=== PATIENT | male | born 1985 | race Caucasian/White ===

== ENCOUNTER 2017-03-13 17:16 | Emergency (ER) | payer SELFPAY ==
[2017-03-13] MEDS ORDERED: methylPREDNISolone SOD SUCC 125 MG/2 ML VIAL IVP ONE (17:34)
[2017-03-13] MEDS ORDERED: NS 1,000 ML IV ONE (17:34)
[2017-03-13] MEDS ORDERED: RANITIDINE 50 MG/2 ML VIAL IVP ONE (17:34)
--- NOTE | 2017-03-13 17:37 | EDPHY ---
H & P Stated Complaint: Allergic reaction to " bug bite " - Personal History Current Tetanus/Diphtheria Vaccine: Yes Current Tetanus Diphtheria and Acellular Pertussis (TDAP): Yes - Medical/Surgical History Hx Asthma: No Hx Chronic Respiratory Disease: No Hx Diabetes: No Hx Cardiac Disease: No Hx Renal Disease: No Hx Cirrhosis: No Hx Alcoholism: No Hx HIV/AIDS: No Hx Splenectomy or Spleen Trauma: No Other PMH: Denies - Social History Smoking Status: Heavy smoker Time Seen by Provider: 03/13/17 17:32 HPI/ROS: CHIEF COMPLAINT: "I got bit by a bee" HISTORY OF PRESENT ILLNESS: 31-year-old male arrives via private vehicle complaining of acute allergic reaction like symptoms after being stung by a bee to his right distal calf approximately 45-60 minutes prior to arrival. He is complaining of diffuse erythema, itching, sensation of progressive dysphagia REVIEW OF SYSTEMS: A ten point review of systems was performed and is negative with the exception of the items mentioned in the HPI PAST MEDICAL & SURGICAL HISTORY: No prior history of anaphylaxis SOCIAL HISTORY:nonsmoker PHYSICAL EXAM (Prior to examination, patient consented to physical exam, hands were washed and my usual and customary physical exam procedures followed) 1) GENERAL: Well-developed, well-nourished, alert and oriented. Appears uncomfortable. 2) HEAD: Normocephalic, atraumatic 3) HEENT: Pupils equal, round, reactive to light bilaterally. Sclera anicteric. Nasopharynx, oropharynx, clear, no lesions no tonsillar enlargement tonsillar exudate. Ears bilaterally with normal tympanic membranes. 4) NECK: Full range of motion, no meningeal signs. 5) LUNGS: Clear auscultation bilaterally, no wheezes, no rhonchi, no retractions. 6) HEART: Regular rate and rhythm, no murmur, no heave, no gallop. 7) ABDOMEN: No guarding, no rebound, no focal tenderness, 8) MUSCULOSKELETAL: No peripheral edema or discoloration.] 9) BACK: No CVA tenderness, no midline vertebral tenderness, no fluctuance, no step-off, no obvious trauma, no visual or palpable abnormality. 10) SKIN: Diffuse erythema, itching 11) Psychiatric: Patient is oriented X 3, there is no agitation. DIFFERENTIAL DIAGNOSIS: in no particular include but limited to urticaria, anaphylaxis, anaphylactoid reaction (Marlene Chase) Constitutional: Initial Vital Signs Temperature (C) 37.0 C 03/13/17 17:28 Heart Rate 63 03/13/17 17:28 Respiratory Rate 19 03/13/17 17:28 Blood Pressure 155/72 H 03/13/17 17:28 O2 Sat (%) 92 03/13/17 17:28 O2 Delivery Mode Room Air Allergies/Adverse Reactions: No Known Allergies Allergy (Unverified 03/13/17 17:25) Home Medications: Medication Instructions Recorded EPINEPHRINE [EPIPEN] 0.3 mg IM ONCE #2 syr 03/13/17 Medical Decision Making ED Course/Re-evaluation: I personally evaluated this patient with MIKE Chase. On my evaluation the patient had significant diffuse erythema and swelling of his lips. He had no wheezing or airway occlusion. There is no pharyngeal swelling. I discussed the plan with the patient. I answered all his questions. (Marah Quintero) 5:37 p.m.: Patient also seen and examined by Dr. Quintero in the ER 6:06 p.m.: Re-evaluation, his erythema has resolved, is resting comfortably. No airway compromise at this point, no pharyngeal swelling. Will continue observe patient in the ER 7:25 p.m.: Re-evaluation, sleeping, easily woken, posterior oropharynx is clear , normal skin coloration with erythema resolved, breathing comfortably, lungs clear bilaterally. Plan will be discharged from the emergency department. He has not been given epinephrine while in the emergency department as he was noted to be hypertensive and his symptoms resolved after H1 H2 shayne and prednisone. Given usual customary allergic reaction precautions and instructions (Marlene Chase) - Data Points Medications Given: Discontinued Medications Diphenhydramine HCl (Benadryl Injection) 50 mg IVP EDNOW ONE Stop: 03/13/17 17:35 Last Admin: 03/13/17 17:42 Dose: 50 mg Epinephrine HCl (Epinephrine) 0.3 mg IM EDNOW ONE Stop: 03/13/17 17:35 Last Admin: 03/13/17 18:20 Dose: Not Given Sodium Chloride (Ns) 1,000 mls @ 0 mls/hr IV ONCE ONE; Wide Open PRN Reason: Protocol Stop: 03/13/17 17:35 Last Admin: 03/13/17 17:43 Dose: 1,000 mls Methylprednisolone Sodium Succinate (Solu-Medrol) 125 mg IVP EDNOW ONE Stop: 03/13/17 17:35 Last Admin: 03/13/17 17:42 Dose: 125 mg Ranitidine HCl (Zantac) 50 mg IVP EDNOW ONE Stop: 03/13/17 17:35 Last Admin: 03/13/17 17:41 Dose: 50 mg Departure - Departure Disposition: Home, Routine, Self-Care Clinical Impression: Allergic reaction Qualifiers: Encounter type: initial encounter Qualified Code(s): T78.40XA - Allergy, unspecified, initial encounter Condition: Good Instructions: General Allergic Reaction (ED) Additional Instructions: If you developed allergic reaction like symptoms use your EpiPen and call 911 immediately. Referrals: [facility],. [Clinic] - 03/16/17 Prescriptions: EPINEPHRINE [EPIPEN] 0.3 mg IM ONCE #2 syr
[2017-03-13 19:44] VITALS: BP 141/90; PULSE 93; RESP 18; TEMP 98.8; O2SAT 97
== END 2017-03-13 19:43 | disposition home or self-care (01) ==
DX: T78.40XA Allergy, unspecified, initial encounter (principal); E86.9 Volume depletion, unspecified
CPT/HCPCS: 96374; J0171; J1200; J2780